=== PATIENT | male | born 1985 | race Caucasian/White ===

== ENCOUNTER 2023-03-11 10:10 | Outpatient (CLI) | payer OTHER, SELFPAY | END 2023-03-11 10:11 | disposition home or self-care (01) | LOC: NFLDREF 03-12 08:37 | PROVIDERS: PCP Family Medicine; Referring Provider Family Medicine; Visit Provider Family Medicine | DX: E78.1 Pure hyperglyceridemia (principal); M10.9 Gout, unspecified | CPT/HCPCS: 80053; 80061; 84550 ==

== ENCOUNTER 2023-05-17 10:31 | Outpatient (CLI) | payer OTHER, SELFPAY | END 2023-05-17 10:32 | disposition home or self-care (01) | PROVIDERS: PCP Family Medicine; Visit Provider Family Medicine | DX: I10 Essential (primary) hypertension (principal); E78.1 Pure hyperglyceridemia; M10.9 Gout, unspecified; R00.0 Tachycardia, unspecified; Z13.6 Encounter for screening for cardiovascular disorders | CPT/HCPCS: 80061; 80076; 84550 ==

== ENCOUNTER 2024-05-04 08:02 | Outpatient (CLI) | payer BC, SELFPAY | END 2024-05-04 08:03 | disposition home or self-care (01) | LOC: NFLDREF 05-06 17:04 | PROVIDERS: PCP Family Medicine; Referring Provider Family Medicine; Visit Provider Family Medicine | DX: E78.00 Pure hypercholesterolemia, unspecified (principal); I10 Essential (primary) hypertension; E78.1 Pure hyperglyceridemia; M10.9 Gout, unspecified | CPT/HCPCS: 80053; 80061; 84550 ==

== ENCOUNTER 2024-11-06 09:34 | Outpatient (CLI) | payer BC, SELFPAY | END 2024-11-06 09:35 | disposition home or self-care (01) | LOC: NFLDREF 11-08 00:27 | PROVIDERS: PCP Family Medicine; Referring Provider Family Medicine; Visit Provider Family Medicine | DX: E78.1 Pure hyperglyceridemia (principal); E78.00 Pure hypercholesterolemia, unspecified | CPT/HCPCS: 80061 ==

== ENCOUNTER 2025-03-03 08:02 | Outpatient (CLI) | payer BC, SELFPAY | END 2025-03-03 08:03 | disposition home or self-care (01) | LOC: NFLDREF 03-04 18:15 | PROVIDERS: PCP Family Medicine; Referring Provider Family Medicine; Visit Provider Family Medicine | DX: E78.1 Pure hyperglyceridemia (principal) | CPT/HCPCS: 80048; 80061; 80076 ==